=== PATIENT | male | born 2000 | race African-American/Black ===

== ENCOUNTER 2020-06-05 23:14 | Emergency (ER) | payer SELFPAY ==
[2020-06-05] MEDS ORDERED: DOXYCYCLINE MO100 MG ORAL (23:27)
[2020-06-05] MEDS ORDERED: cefTRIAXone 500mg Inj IM ONE (23:30)
[2020-06-05] MEDS ORDERED: Lidocaine 1% MPF 10mg/ml 5ml INJ ONE (23:30)
--- NOTE | 2020-06-05 23:36 | NUR ---
ED Nurse Note: not in waiting room
--- NOTE | 2020-06-05 23:48 | Emergency Room Report ---
History of Present Illness General Chief Complaint: To Be Triaged Present Illness HPI Patient left without being seen Allergies: Coded Allergies: No Known Allergies (Unverified , 06/05/20) Medical Decision Making Diagnostic Impression: Primary Impression: Urethritis Additional Impression: STD exposure Scripts Doxycycline Monohydrate* (DOXYCYCLINE MONOHYDRATE*) 100 Mg Capsule 100 MG ORAL Q12H, #14 CAP 0 Refills Prov: Luciano Macdonald M.D. 06/05/20 Referrals: [facility] *Patients are seen by appointment only* [facility] Patient Instructions: Safe Sex Luciano Macdonald M.D. Jun 05, 2020 23:48
--- NOTE | 2020-06-05 23:54 | NUR ---
ED Nurse Note: not in waiting room, second call
--- NOTE | 2020-06-06 00:14 | NUR ---
ED Nurse Note: not in waiting room, third call.
== END 2020-06-05 23:48 | disposition left against medical advice (07) ==
LOC: EMR 23:48
DX: N34.2 Other urethritis (principal); Z20.2 Contact with and (suspected) exposure to infections with a predominantly sexual mode of transmission
CPT/HCPCS: 96372; 99283